=== PATIENT | female | born 1990 | race Caucasian/White ===

== ENCOUNTER 2020-07-26 04:32 | Inpatient (IN) ==
[2020-07-26] MEDS ORDERED: BUTORPHANOL 2 MG/ML VIAL IV PRN (04:54)
[2020-07-26] MEDS ORDERED: ONDANSETRON 4 MG/2 ML VIAL IV PRN ×2 (04:54→07:27)
[2020-07-26] MEDS ORDERED: MEPERIDINE 50 MG/1 ML VIAL IV PRN (04:54)
[2020-07-26] MEDS ORDERED: diphenhydrAMINE 50 MG/1 ML VIAL IV PRN ×2 (04:56)
[2020-07-26] MEDS ORDERED: ePHEDrine 50 MG/ML VIAL IV PRN (04:56)
[2020-07-26] MEDS ORDERED: NALOXONE 0.4 MG/ML VIAL IV PRN (04:56)
[2020-07-26] MEDS ORDERED: hydrOXYzine HCL 25 MG/1 ML VIAL IM PRN (04:56)
[2020-07-26] MEDS ORDERED: FAMOTIDINE 20 MG/2 ML VIAL IV ONE (04:57)
[2020-07-26] MEDS ORDERED: CITRIC ACID/SODIUM CITRATE 30 ML UDCUP PO ONE (04:57)
[2020-07-26] MEDS ORDERED: LACTATED RINGERS 1,000 ML IV SCH (05:00)
[2020-07-26] MEDS ORDERED: fentaNYL 2 MCG/ROPIV 0.2% EPID 100 ML EPIDURAL SCH (05:00)
[2020-07-26] MEDS ORDERED: BUTORPHANOL 1 MG/ML VIAL ONE (05:04)
[2020-07-26 05:29] LABS: Albumin 2.6 G/DL (3.4-5.0); Bilirubin,Total 0.4 MG/DL (0.2-1.0); Calcium 8.3 MG/DL (8.5-10.1); Osmolality,Calculated 274.5 MOS/KG (273-304); Potassium 3.9 MMOL/L (3.5-5.1); Total Protein 6.5 G/DL (6.4-8.2)
[2020-07-26] MEDS ORDERED: OXYTOCIN/LR 30 UNIT/1,000 ML BAG IV ONE (05:35)
[2020-07-26] MEDS ORDERED: miSOPROStoL 200 MCG TABLET ONE (05:36)
[2020-07-26] MEDS ORDERED: TRANEXAMIC ACID 1,000 MG/10 ML VIAL ONE (05:36)
[2020-07-26 05:37] LABS: Basophils % 0.4 % (0.0-0.8); Eosinophils # 0.1 10*3/uL (0.0-0.87); Eosinophils % 1.1 % (0.00-10.9); Hematocrit 37.8 VOL% (35.7-47.0); Hemoglobin 12.3 GM/DL (12.0-16.0); Immature Granulocytes % 0.6 %; Immature Granulocytes Absolute 0.07 #; Lymphocytes # 3.3 10*3/uL (1.4-4.0); Lymphocytes % 28.9 % (21.3-54.2); Mean Corpuscular HGB Conc 32.5 GM/DL (32-36); Mean Corpuscular Volume 82.2 FL (87-102); Mean Platelet Volume 11.5 FL (9.6-12.0); Monocytes % 6.4 % (1.7-12.7); Neutrophils % 62.6 % (38.7-73.9); Platelet Count 270 T/CUMM (130-400); White Blood Count 11.3 T/CUMM (4-12)
[2020-07-26] MEDS ORDERED: LIDOCAINE 1% 50 ML VIAL ONE (05:37)
[2020-07-26] MEDS ORDERED: CARBOPROST TROMETHAMINE 250 MCG/ML AMP IM ONE (05:37)
[2020-07-26] MEDS ORDERED: METHYLERGONOVINE 0.2 MG/1 ML AMP ONE (05:37)
[2020-07-26 06:41] LABS: Cord Venous Blood HCO3 19.8 MMOL/L; Cord Venous Blood PCO2 40.4 MMHG; Cord Venous Blood PO2 28.5
[2020-07-26] MEDS ORDERED: BENZOCAINE 20%/MENTHOL 0.5% SPRAY 56 GM CAN TOP PRN ×2 (06:42→07:27)
[2020-07-26] MEDS ORDERED: OXYTOCIN/LR 20 UNIT/1,000 ML BAG IV ONE (07:27)
[2020-07-26] MEDS ORDERED: oxyCODONE/ACETAMINOPHEN 5-325 MG TABLET PO PRN ×2 (07:27)
[2020-07-26] MEDS ORDERED: DIPH/TET/ACEL PERT BOOSTER VACCINE 0.5 ML VIAL IM ONE (07:27)
[2020-07-26] MEDS ORDERED: MEASLES/MUMPS/RUBELLA VACCINE 0.5 ML VIAL SUBCUT ONE (07:27)
[2020-07-26] MEDS ORDERED: HYDROCORTISONE 2.5% RECTAL CREAM 30 GM TUBE TOP PRN (07:27)
[2020-07-26] MEDS ORDERED: LANOLIN 50% CREAM 0.3 OZ TUBE TOP PRN (07:27)
[2020-07-26] MEDS ORDERED: WITCH HAZEL PADS 100/JAR TOP PRN (07:27)
[2020-07-26] MEDS ORDERED: RHO(D) IMMUNE GLOBULIN 300 MCG SYRINGE IM ONE (07:27)
[2020-07-26] MEDS ORDERED: ACETAMINOPHEN 325 MG TABLET PO PRN (07:27)
[2020-07-26] MEDS ORDERED: BISACODYL 10 MG SUPP RECTAL PRN (07:27)
[2020-07-26] MEDS: DOCUSATE SODIUM 100 MG CAPSULE PO SCH ×2 (11:24→21:31)
[2020-07-26] MEDS: IBUPROFEN 800 MG TABLET PO PRN (21:41)
[2020-07-27] MEDS: IBUPROFEN 800 MG TABLET PO PRN ×3 (04:12→22:56)
[2020-07-27 06:04] LABS: Basophils # 0.1 10*3/uL (0.0-0.2); Basophils % 0.4 % (0.0-0.8); Eosinophils # 0.2 10*3/uL (0.0-0.87); Eosinophils % 1.5 % (0.00-10.9); Hematocrit 28.9 VOL% (35.7-47.0); Hemoglobin 8.9 GM/DL (12.0-16.0); Immature Granulocytes % 0.7 %; Immature Granulocytes Absolute 0.08 #; Lymphocytes % 25.3 % (21.3-54.2); Mean Corpuscular HGB Conc 30.8 GM/DL (32-36); Mean Corpuscular Volume 85.5 FL (87-102); Mean Platelet Volume 11.2 FL (9.6-12.0); Monocytes % 8.1 % (1.7-12.7); Platelet Count 214 T/CUMM (130-400); Red Blood Count 3.38 MC/CUMM (3.8-5.5); Red Cell Distribution Width 13.1 % (9.3-17.3); White Blood Count 11.8 T/CUMM (4-12)
[2020-07-27 07:49] LABS: Hypochromasia 1+; Platelet Estimate Normal
[2020-07-27] MEDS: FERROUS SULFATE 325 MG TABLET PO SCH ×2 (08:19→20:00)
[2020-07-27] MEDS: DOCUSATE SODIUM 100 MG CAPSULE PO SCH ×2 (08:19→20:00)
[2020-07-27] MEDS ORDERED: ACETAMINOPHEN/CODEINE 300-30 MG TABLET PO PRN ×2 (15:24)
[2020-07-28] MEDS: DOCUSATE SODIUM 100 MG CAPSULE PO SCH ×2 (07:46→08:39)
[2020-07-28] MEDS: FERROUS SULFATE 325 MG TABLET PO SCH ×2 (07:47→08:39)
[2020-07-28 08:11] VITALS: BP 116/68
== END 2020-07-28 12:45 | disposition home or self-care (01) | DRG 807 ==
LOC: N.LDOUT 04:32 → N.LD 04:34 → N.OB 15:45
PROVIDERS: ADMIT Obstetrics & Gynecology; ATTEND Obstetrics & Gynecology